=== PATIENT | female | born 1985 | race African-American/Black ===

== ENCOUNTER 2016-10-11 10:17 | Emergency (ER) | payer OTHER ==
[~2016-10-11] VITALS: Ht 160 cm; Wt 67.7 kg
[2016-10-11 10:33] VITALS: BP 109/71
== END 2016-10-11 14:11 | disposition home or self-care (01) ==
LOC: ER 10:17
DX: S16.1XXA Strain of muscle, fascia and tendon at neck level, initial encounter (principal); V43.52XA Car driver injured in collision with other type car in traffic accident, initial encounter; Y93.89 Activity, other specified; Y99.8 Other external cause status; Y92.89 Other specified places as the place of occurrence of the external cause
CPT/HCPCS: 72040

== ENCOUNTER 2017-02-21 19:46 | Emergency (ER) | payer OTHER ==
[~2017-02-21] VITALS: Ht 160 cm; Wt 68.3 kg
[2017-02-21 20:13] LABS: Basophils # (auto) 0.1 uL; Basophils % (auto) 1.2 % (0.0-2.0); CONDITION Y; Eosinophils # (auto) 0.4 uL; Hematocrit 38.7 % (36.0-46.0); Hemoglobin 12.5 g/dL (12.2-16.2); Lymphocytes # (auto) 2.6 uL; Mean Corpuscular Hemoglobin 27.4 pg (28.0-32.0); Mean Corpuscular Hgb Conc. 32.2 g/dL (32.0-36.0); Mean Corpuscular Volume 84.8 fL (80.0-100.0); Mean Platelet Volume 10.6 fL (7.4-10.4); Monocytes # (auto) 0.7 uL; Monocytes % (auto) 8.4 % (0.0-12.0); Neutrophils # (auto) 4.9 uL; Neutrophils % (auto) 56.4 % (37.0-80.0); Platelet Count (auto) 240 10^3/uL (140-450); Red Cell Distribution Width 13.7 % (11.6-16.0); SUSPECT SEE PRINTOUT; White Blood Cell 8.8 10^3/uL (4.4-10.8)
[2017-02-21 20:26] LABS: Urine Bilirubin Negative (Negative); Urine Blood 2+ /uL (Negative); Urine Color Yellow (Yellow); Urine Glucose Normal (Normal); Urine Ketone Negative (Negative); Urine Nitrite Negative (Negative); Urine RBC 207 /hpf (0 - 4); Urine Squamous Epithelial Cell FEW /hpf (<5); Urine Urobilinogen Normal (Negative); Urine pH 5.5 (5.0-8.0)
[2017-02-21 20:28] LABS: INR 0.99 (0.9-1.15); Partial Thromboplastin Time 28.5 sec (22.64-33.71); Prothrombin Time 10.8 sec (9.37-12.3)
[2017-02-21 20:35] LABS: Albumin 3.8 g/dL (3.4-5.0); Alkaline Phosphatase 69 U/L (45-117); Anion Gap 8 (5-15); Aspartate Aminotransferase 10 U/L (15-37); BUN/Creatinine Ratio 7.9; Bilirubin, Total < 0.1 mg/dL (0.2-1.0); Blood Urea Nitrogen 7 mg/dL (7-18); Calcium 8.6 mg/dL (8.5-10.1); Carbon Dioxide 25 mmol/L (21-32); Chloride 107 mmol/L (98-107); GFR African American 96 mL/min; GFR Non-African American 79 mL/min; Glucose 92 mg/dL (74-106); Potassium 4.1 mmol/L (3.5-5.1); Sodium 140 mmol/L (136-145); Total Protein 7.2 g/dL (6.4-8.2)
[2017-02-21 22:30] VITALS: BP 123/79
== END 2017-02-21 22:32 | disposition home or self-care (01) ==
LOC: ER 19:54
DX: O20.0 Threatened abortion (principal); Z3A.01 Less than 8 weeks gestation of pregnancy; O26.891 Other specified pregnancy related conditions, first trimester; R10.9 Unspecified abdominal pain
CPT/HCPCS: 36415; 80053; 81001; 84702; 85025; 85610; 85730

== ENCOUNTER 2018-07-06 22:37 | Emergency (ER) | payer OTHER, MEDICAID ==
[~2018-07-06] VITALS: Ht 160 cm; Wt 59.0 kg
[2018-07-06 22:40] VITALS: BP 108/68
[2018-07-06 23:28] LABS: Basophils # (auto) 0 uL; Basophils % (auto) 0.8 % (0.0-2.0); Eosinophils # (auto) 0.4 uL; Eosinophils % (auto) 6.4 % (0.0-7.0); Hematocrit 35.3 % (36.0-46.0); Hemoglobin 11.3 g/dL (12.2-16.2); Lymphocytes # (auto) 1.9 uL; Lymphocytes % (auto) 30.8 % (10.0-50.0); Mean Corpuscular Hemoglobin 27.6 pg (28.0-32.0); Mean Corpuscular Hgb Conc. 32.1 g/dL (32.0-36.0); Mean Corpuscular Volume 85.8 fL (80.0-100.0); Monocytes # (auto) 0.6 uL; Monocytes % (auto) 10.2 % (0.0-12.0); Neutrophils # (auto) 3.2 uL; Neutrophils % (auto) 51.8 % (37.0-80.0); Platelet Count (auto) 157 10^3/uL (140-450); Red Blood Cells 4.12 10^6/uL (4.0-5.20); Red Cell Distribution Width 13.6 % (11.8-14.3); White Blood Cell 6.2 10^3/uL (4.4-10.8)
[2018-07-06 23:51] LABS: Albumin 3.9 g/dL (3.4-5.0); Calcium 8.4 mg/dL (8.5-10.1); Potassium 3.7 mmol/L (3.5-5.1)
[2018-07-06 23:54] LABS: Bilirubin, Total 0.2 mg/dL (0.2-1.0); Total Protein 7.3 g/dL (6.4-8.2)
[2018-07-07 01:07] LABS: Urine Bacteria FEW /hpf (None Seen); Urine Blood Negative /uL (Negative); Urine Mucus MODERATE (None Seen); Urine WBC 2 /hpf (0 - 5)
== END 2018-07-07 02:42 | disposition left against medical advice (07) ==
LOC: ER 22:40
DX: R07.89 Other chest pain (principal); R06.02 Shortness of breath; Z53.21 Procedure and treatment not carried out due to patient leaving prior to being seen by health care provider
CPT/HCPCS: 36415; 71045; 80053; 81001; 81025; 85025; 93005